=== PATIENT | female | born 1940 | race Caucasian/White ===

== ENCOUNTER 2018-10-04 11:16 | Day surgery (SDC) | payer MEDICARE, OTHER ==
[2018-10-04] VITALS (12 sets, daily range): BP systolic 113–130; BP diastolic 52–64; PULSE 60–82; RESP 11–20; Ht 160 cm; Wt 76.2 kg
[~2018-10-04] VITALS: Ht 160 cm; Wt 76.2 kg
[2018-10-04] MEDS ORDERED: METO-335 PO (12:01)
[2018-10-04] MEDS ORDERED: DABI75CA2 PO (12:02)
[2018-10-04] MEDS ORDERED: GABA300C16 PO (12:02)
[2018-10-04] MEDS ORDERED: ERGO2000 PO (12:03)
[2018-10-04] MEDS ORDERED: DRON400T2 PO (12:03)
[2018-10-04] MEDS ORDERED: MULTI PO (12:03)
[2018-10-04] MEDS ORDERED: ASCO500C7 PO (12:08)
[2018-10-04] MEDS ORDERED: AZEL137S9 NASAL (12:09)
[2018-10-04] MEDS ORDERED: OMEG-135 PO (12:09)
[2018-10-04] MEDS ORDERED: CALC1TAB79 PO (12:10)
[2018-10-04] MEDS ORDERED: POLYMYXIN/BACITRACIN 1L IRRIG ONE (12:26)
[2018-10-04] MEDS ORDERED: BUPIVACAINE 0.5% (SDV) 30 ML INJ ONE (12:53)
[2018-10-04] MEDS ORDERED: LIDOCAINE 1% (MPF) 30 ML INJ ONE (12:54)
--- NOTE | 2018-10-04 12:56 | PREAC ---
Date/Time of Note Date/Time of Note DATE: 10/04/18 TIME: 12:52 Anesthesia Eval and Record Evaluation Time Pre-Procedure Interview DATE: 10/04/18 TIME: 12:52 Age 77 Sex female NPO: 8 hrs Preoperative diagnosis Lt ankle open wound Planned procedure lt ankle debridement Past Medical History Past Medical History: Includes Cardio: HTN, Dyslipidemia Endo: Diabetes GI: Morbid obesity Surgery & Anesthesia Issues No known issue Meds Anticoagulation: No Beta Yasmine within 24 hr: Yes Reported Medications Calcium Carbonate/Vitamin D3 ([place]ysco 500+D Tablet) 1 Each Tablet, 1 EACH PO DAILY, TAB 10/04/18 [place]-3 Fatty Acids/Fish Oil (Fish Oil 1,000 mg Capsule) 1 Each Capsule, 1 EACH PO DAILY, CAP 10/04/18 Azelastine Hcl* (Azelastine Hcl*) 137 Mcg/0.137 Ml [place].pump, 1 SPRAY NASAL BID, #1 EA TO EACH NOSTRIL 10/04/18 Ascorbic Acid* (Vitamin C*) 500 Mg Capsule.sa, 1000 MG PO DAILY, CAP 10/04/18 Multivitamins* (Theragran*) 1 Tab Tab, 1 TAB PO DAILY, TAB 10/04/18 Ergocalciferol (Vitamin D2) (VITAMIN D2) 2,000 Unit Tablet, 2000 UNIT PO DAILY, TAB 10/04/18 Dronedarone Hydrochloride* (Multaq*) 400 Mg Tablet, 400 MG PO DAILY, TAB 10/04/18 Dabigatran Etexilate Mesylate* (Pradaxa*) 75 Mg Cap, 75 MG PO BID, CAP 10/04/18 Gabapentin* (Gabapentin*) 300 Mg Capsule, 300 MG PO TID, #90 CAP 10/04/18 Metoprolol Succinate* (Toprol XL*) 25 Mg Tab.sr.24h, 25 MG PO DAILY, #30 TAB 10/04/18 Meds reviewed: Yes Allergies Coded Allergies: No Known Allergy (Unverified , 10/03/18) Allergies Reviewed: Yes Labs/Studies Labs Reviewed: Reviewed by anesthesiologist test: N/A Studies: ECG Pre-procedure Exam Last vitals BP:145/67, P:76, Spo2:98%, T:98,9 Airway: Adequate mouth opening, Adequate thyromental dist Mallampati: Mallampati II Teeth: Normal Lung: Normal Heart: Normal ASA Physical Status ASA physical status: 3 Emergency: None Planned Anesthetic General/MAC: LMA Planned Pain Management Single shot nerve block, Parenteral pain med Pre-operative Attestations Prior to commencing anesthesia and surgery, the patient was re-evaluated, there was verification of: *The patient's identity *The results of appropriate recent lab work and preoperative vital signs *The above evaluation not changing prior to induction *Anesthetic plan, risk benefits, alternative and complications discussed with patient/family; questions answered; patient/family understands, accepts and wishes to proceed. FIFI FISH MD Oct 04, 2018 12:55
[2018-10-04] MEDS ORDERED: LACTATED RINGER'S 1,000 ML IV SCH (13:00)
--- NOTE | 2018-10-04 13:21 | HPN ---
Date/Time of Note Date/Time of Note DATE: 10/04/18 TIME: 13:21 Interval H&P Admission Note Pt. seen H&P reviewed: No system changes VIVI AGUERO DPM Oct 04, 2018 13:21
[2018-10-04] MEDS ORDERED: MIDAZOLAM 1 MG/ML 2 ML INJ ONE (13:25)
[2018-10-04] MEDS ORDERED: FENTAnyl 50 MCG/ML VIAL ONE (13:26)
[2018-10-04] MEDS ORDERED: LIDOCAINE 2% (SDV) 5 ML INJ ONE (14:03)
[2018-10-04] MEDS ORDERED: ONDANSETRON 4 MG INJ ONE (14:03)
[2018-10-04] MEDS ORDERED: PROPOFOL 40 ML ONE (14:03)
[2018-10-04] MEDS ORDERED: CEFAZOLIN 1 GM INJ ONE (14:03)
--- NOTE | 2018-10-04 14:09 | SIPON ---
Date/Time of Note Date/Time of Note DATE: 10/04/18 TIME: 14:07 Operative Report Preoperative Diagnosis Left ankle non-pressure ulceration Hx of left ankle ORIF Hx of Left ankle wound dehiscence Edema Postoperative Diagnosis Left ankle non-pressure ulceration Hx of left ankle ORIF Hx of Left ankle wound dehiscence Edema Operation/Procedure Performed left ankle wound bed preparation application of skin allograft left ankle Surgeon see signature line executive assistant none Anesthesia: MAC Estimated blood loss: 0 - 10 ml's Transfusion Required none Specimen none Grafts/Implants none Complications none VIVI AGUERO DPMaddison Oct 04, 2018 14:09
--- NOTE | 2018-10-04 14:10 | OPR ---
Date/Time of Note Date/Time of Note DATE: 10/04/18 TIME: 14:10 Operative Report Preoperative Diagnosis Left ankle non-pressure ulceration Hx of left ankle ORIF Hx of Left ankle wound dehiscence Edema Postoperative Diagnosis Left ankle non-pressure ulceration Hx of left ankle ORIF Hx of Left ankle wound dehiscence Edema Operation/Procedure Performed left ankle wound bed preparation application of skin allograft left ankle Surgeon see signature line Surgical Rn none Anesthesia Type: MAC Estimated Blood Loss: 0 - 10 ml's Transfusion none Specimen none Grafts/Implants integra bilayer Complications none Indications 77 y/o F with hx of an ankle fracture to left lower extremity resulting in wound complications and dehiscence. Patient had undergone previous debridements and wound VAC therapy. Patient is amenable to surgical intervention of application of the allograft. Addressed all of the patient's questions and concerns. No promises or guarantees were given. Procedure Description Patient was brought into the OR and placed in the supine position. The left lower extremity was scrubbed, prepped, and draped in the usual aseptic manner. A formal time out was conducted. Attention was directed to the left lower extremity. Local anesthetic block was administered to the surgical site. The wound measured 2.7 x 2.3 x 0.6cm with a granular wound base unable to probe to bone. There was no purulence, no proximal streaking or erythema appreciated. Using curettage and sharp instrumentation the wound bed was prepared and adequate sanguinous bleeding was appreciated to the ulceration site. Non viable tissue was removed from the wound site. An integra bilayer synthetic allograft was applied to the ulceration site and secured with 3-0 prolene. Xeroform was applied to the wound site with dry sterile dressings and compression ban wraps. Patient was transferred to the PACU with vital signs stable and neurovascular status intact. VIVI AGUERO DPM Oct 04, 2018 14:10
--- NOTE | 2018-10-04 14:23 | PDOCDIS ---
Discharge Instructions CONDITION [id number] Patient Condition: [id number] Stable HOME CARE INSTRUCTIONS: [id number] Diet Instructions: [id number] Reduced Sodium ACTIVITY: [id number] Activity Restrictions: [id number] Partial Weight Bearing (with CAM boot) [id number] Bathing Restrictions: [id number] Sponge Bath FOLLOW UP/APPOINTMENTS Follow-up Plan follow up 1 week to wound care clinic with Dr. Brandon Gay/VIVI Márquez DPM Oct 04, 2018 14:23
--- NOTE | 2018-10-04 14:28 | PAC ---
Date/Time of Note Date/Time of Note DATE: 10/04/18 TIME: 14:28 Post-Anesthesia Notes Post-Anesthesia Note Last documented vital signs Vital Signs Date Temp Pulse Resp B/P (MAP) Pulse Ox O2 O2 Flow FiO2 Time Delivery Rate 10/04/18 98.6 14:18 10/04/18 75 16 122/64 96 Room Air 13:04 (83) Activity: WNL Respiratory function: WNL Cardiovascular function: WNL Mental status: Baseline Pain reasonably controlled: Yes Hydration appropriate: Yes Nausea/Vomiting absent: Yes Comments BP:112/56, P:78, Spo2:100%, T:98,8 FIFI FISH MD Oct 04, 2018 14:28
[2018-10-04] MEDS ORDERED: DIPHENHYDRAMINE 50 MG INJ IV PRN (14:30)
[2018-10-04] MEDS ORDERED: MEPERIDINE 25 MG INJ IV PRN (14:30)
[2018-10-04] MEDS ORDERED: HYDROmorphONE 1 MG/5 ML IV SYRINGE IV PRN ×2 (14:30)
[2018-10-04] MEDS ORDERED: ONDANSETRON 4 MG INJ IV PRN (14:30)
[2018-10-04] MEDS ORDERED: KETOROLAC 30 MG INJ IV PRN (14:30)
[2018-10-04] MEDS ORDERED: FENTAnyl 50 MCG/ML VIAL IV PRN (14:30)
[2018-10-04] MEDS ORDERED: LABETALOL HCL 20MG INJ IV PRN (14:30)
== END 2018-10-04 17:00 | disposition home or self-care (01) ==
LOC: SDS 11:16
PROVIDERS: ATTEND Podiatrist Foot & Ankle Surgery
DX: T81.30XD Disruption of wound, unspecified, subsequent encounter (principal); Y83.8 Other surgical procedures as the cause of abnormal reaction of the patient, or of later complication, without mention of misadventure at the time of the procedure; L97.329 Non-pressure chronic ulcer of left ankle with unspecified severity; I10 Essential (primary) hypertension; E78.5 Hyperlipidemia, unspecified; E11.9 Type 2 diabetes mellitus without complications
CPT/HCPCS: 15271; J0690; J2250; J2405; J3010; Q4104